=== PATIENT | female | born 1995 | race Hispanic/Latino ===

== ENCOUNTER 2019-01-06 19:18 | Emergency (ER) | payer SELFPAY ==
[2019-01-06 19:58] LABS: APPEARANCE,URINE CLOUDY (CLEAR); BILIRUBIN,URINE NEGATIVE (NEGATIVE); COLOR,URINE YELLOW (YELLOW); GLUCOSE, URINE (UA) NEGATIVE (NEGATIVE); KETONES,URINE NEGATIVE (NEGATIVE); LEUKOCYTE ESTERASE ,URINE LARGE (NEGATIVE); NITRATE,URINE POSITIVE (NEGATIVE); OCCULT BLOOD,URINE MODERATE (NEGATIVE); PROTEIN,URINE 100 mg/dL (NEGATIVE); UROBILINOGEN,URINE 0.2 mg/dL (0.2-1.0)
[2019-01-06 20:07] LABS: HCG,QUAL RESULT NEGATIVE (NEGATIVE)
[2019-01-06 20:09] LABS: BACTERIA,URINE Few /HPF (None Seen); SQUAMOUS EPITHELIAL CELL,UR Few /HPF (0-2); WBC,URINE 26-50 /HPF (0-1)
[2019-01-06] MEDS ORDERED: LIDOCAINE HCL-MPF 1% 2ML VIAL ONE (20:24)
[2019-01-06] MEDS ORDERED: KETOROLAC TROMETHAMINE 30MG/ML ONE (20:24)
[2019-01-06] MEDS ORDERED: CEFTRIAXONE SODIUM 1 GM ONE (20:24)
== END 2019-01-06 20:39 | disposition home or self-care (01) ==
LOC: EDH 19:18
DX: N39.0 Urinary tract infection, site not specified (principal)
CPT/HCPCS: 81001; 81025; 96372 ×2; 99284; J0696; J1885; J3490